=== PATIENT | male | born 1935 ===

== ENCOUNTER 2020-03-09 19:13 | Inpatient (IN) | payer OTHER ==
[~2020-03-09] VITALS: Ht 172.7 cm; Wt 64.4 kg
[2020-03-09] MEDS ORDERED: TENORMIN25 MG (20:10)
[2020-03-09] MEDS ORDERED: FORTAMET500 MG (20:10)
[2020-03-09] MEDS ORDERED: SIMVASTATIN5 MG (20:10)
[2020-03-09] MEDS ORDERED: PROTONIX40 MG (21:51)
[2020-03-09] MEDS ORDERED: DETROL2 MG (21:52)
[2020-04-05] MEDS ORDERED: METOCLOPRAMIDE10 MG PO (13:15)
[2020-04-05] MEDS ORDERED: ONDANSETRON ODT4 MG PO (13:16)
[2020-04-05] MEDS ORDERED: APETIGEN L790 MG/15 PO (13:17)
[2020-04-05] MEDS ORDERED: GLUCERNA237 M1 PO (13:18)
[2020-04-05] MEDS ORDERED: INTESTINEX680 M1 PO (13:18)
== END 2020-04-05 17:40 | disposition home health service (06) | DRG 330 ==
LOC: ER 19:13 → SURH 03-10 15:52 → SURG 03-10 15:52 → SURH 03-11 10:40
PROVIDERS: ADMIT Surgery; ATTEND Surgery
PROC: 02HV33Z Insertion of Infusion Device into Superior Vena Cava, Percutaneous Approach (ICD-10-PCS; 2020-03-11)
PROC: B24BZZZ Ultrasonography of Heart with Aorta (ICD-10-PCS; 2020-03-11)
PROC: 07BC4ZX Excision of Pelvis Lymphatic, Percutaneous Endoscopic Approach, Diagnostic (ICD-10-PCS; 2020-03-14)
PROC: 0DTF4ZZ Resection of Right Large Intestine, Percutaneous Endoscopic Approach (ICD-10-PCS; principal; 2020-03-14 17:45)
PROC: BW21YZZ Computerized Tomography (CT Scan) of Abdomen and Pelvis using Other Contrast (ICD-10-PCS; 2020-03-22)
DX: C18.2 Malignant neoplasm of ascending colon (principal); K56.7 Ileus, unspecified; N17.8 Other acute kidney failure; E87.0 Hyperosmolality and hypernatremia; E46 Unspecified protein-calorie malnutrition; I13.0 Hypertensive heart and chronic kidney disease with heart failure and stage 1 through stage 4 chronic kidney disease, or unspecified chronic kidney disease; Z20.828 Contact with and (suspected) exposure to other viral communicable diseases; D64.9 Anemia, unspecified; F43.23 Adjustment disorder with mixed anxiety and depressed mood; N18.9 Chronic kidney disease, unspecified; E11.65 Type 2 diabetes mellitus with hyperglycemia; I50.9 Heart failure, unspecified; Z68.21 Body mass index [BMI] 21.0-21.9, adult